=== PATIENT | male | born 1990 | race Caucasian/White ===

== ENCOUNTER 2016-06-11 08:53 | Emergency (ER) | payer OTHER ==
[2016-06-11] MEDS ORDERED: SULFAMETH-TMP DS STARTER PACK 2 TAB BTL PO STA (10:05)
--- NOTE | 2016-06-11 10:08 | ED ---
General Adult HPI - General Chief complaint: Skin/Abscess/Foreign Body Stated complaint: abcess Time Seen by Provider: 06/11/16 09:27 Source: patient, RN notes reviewed Mode of arrival: ambulatory Limitations: no limitations - History of Present Illness Initial comments: Patient 25-year-old male who presents emergency room today with an abscess to the right forearm. Patient does admit to IV drug use and is currently at rehab. States woke up this morning with increased pain swelling to this area. States he has had abscesses same area in the past. Patient denies any other complaints or symptoms. Patient denies any recent fever, chills, shortness of breath, chest pain, back pain, abdominal pain, nausea or vomiting, numbness or tingling, dysuria or hematuria, constipation or diarrhea, headaches or visual changes, or any other complaints. - Related Data Home Medications Medication Instructions Recorded Confirmed Acetaminophen [Tylenol 8 Hour] 650 mg PO Q4H PRN MDD 6tabs/24h 06/11/16 06/11/16 Calcium 1000 Magnesium 500 1 tab PO TID PRN 06/11/16 06/11/16 Ibuprofen [Motrin] 600 mg PO Q8HR PRN 06/11/16 06/11/16 Multivitamins, Thera [Multivitamin] 1 tab PO DAILY 06/11/16 06/11/16 Ondansetron HCl [Zofran] 8 mg PO Q6H PRN 06/11/16 06/11/16 busPIRone HCl [Buspar] 10 mg PO TID 06/11/16 06/11/16 Previous Rx's Medication Instructions Recorded Sulfamethox-Tmp 800-160Mg [Bactrim 1 tab PO Q12HR #28 tab 06/11/16 DS 800-160 mg] Allergies Allergy/AdvReac Type Severity Reaction Status Date / Time No Known Allergies Allergy Verified 06/11/16 09:22 Review of Systems ROS Statement: Those systems with pertinent positive or pertinent negative responses have been documented in the HPI. ROS Other: All systems not noted in ROS Statement are negative. Past Medical History Past Medical History: No Reported History History of Any Multi-Drug Resistant Organisms: None Reported Past Surgical History: Orthopedic Surgery Additional Past Surgical History / Comment(s): r lower leg/tibia Past Psychological History: Anxiety, PTSD Smoking Status: Never smoker Past Alcohol Use History: None Reported Past Drug Use History: Heroin General Exam - General Exam Comments Initial Comments: General: The patient is awake and alert, in no distress, and does not appear acutely ill. Eye: Pupils are equal, round and reactive to light, extra-ocular movements are intact. No nystagmus. There is normal conjunctiva bilaterally. No signs of icterus. Ears, nose, mouth and throat: There are moist mucous membranes and no oral lesions. Neck: The neck is supple, there is no tenderness or JVD. Cardiovascular: There is a regular rate and rhythm. No murmur, rub or gallop is appreciated. Respiratory: Lungs are clear to auscultation, respirations are non-labored, breath sounds are equal. No wheezes, stridor, rales, or rhonchi. Musculoskeletal: Normal ROM, no tenderness. Strength 5/5. Sensation intact. Pulses equal bilaterally 2+. Neurological: A&O x 3. CN II-XII intact, There are no obvious motor or sensory deficits. Coordination appears grossly intact. Speech is normal. Skin: Pale does have abscess located to the right AC joint measures approximately 2 cm across. Firm indurated on exam. Psychiatric: Cooperative, appropriate mood & affect, normal judgment. Limitations: no limitations Course Vital Signs 06/11/16 08:57 Temperature 99.3 F Pulse Rate 99 Respiratory 16 Rate Blood Pressure 118/77 O2 Sat by Pulse 98 Oximetry Procedures - Procedures Initial comment: Procedure: Incision and drainage The skin overlying the abscess was prepped with Betadine, and anesthetized with 1% lidocaine without epinephrine. A #11 scalpel was then used to incise the abscess. Some purulent material was then extracted from the lesion. Wound culture obtained. Gauze dressing placed on top, The patient tolerated the procedure well. Disposition Clinical Impression: Abscess Disposition: HOME SELF-CARE Condition: Good Instructions: Abscess (ED) Additional Instructions: Please use and biotic as prescribed. Please use warm compresses to the affected area at least 4 times daily for 15-20 minutes at a time. Please return to emergency room if the symptoms increase or worsen or for any other concerns. Prescriptions: Sulfamethox-Tmp 800-160Mg [Bactrim DS 800-160 mg] 1 tab PO Q12HR #28 tab Time of Disposition: 10:07
[2016-06-11 10:46] VITALS: BP 136/65; PULSE 87; RESP 16; TEMP 99.4
== END 2016-06-11 10:48 | disposition home or self-care (01) ==
LOC: EC 08:53
DX: L02.413 Cutaneous abscess of right upper limb (principal); F41.9 Anxiety disorder, unspecified; Z79.899 Other long term (current) drug therapy
CPT/HCPCS: 10060; 87070; 87077; 87186; 87205; 99283

== ENCOUNTER 2016-06-12 13:48 | Emergency (ER) | payer OTHER ==
[2016-06-12 14:04] VITALS: BP 126/72; PULSE 96; RESP 18; TEMP 97.8
--- NOTE | 2016-06-12 14:35 | ED ---
General Adult HPI - General Chief complaint: Skin/Abscess/Foreign Body Stated complaint: abscess right arm-revisit Time Seen by Provider: 06/12/16 14:08 Source: patient, RN notes reviewed Mode of arrival: ambulatory Limitations: no limitations - History of Present Illness Initial comments: This is a 25-year-old male presents with an abscess to the right upper extremity. Patient states this was drained yesterday morning and patient has been taking antibiotics as prescribed. Patient has been using Tylenol and Motrin but states the pain is worse today. Patient has only use warm compresses to the area once. Patient denies any increasing redness or purulent drainage from the area. Patient has a history of IV drug abuse. Patient denies any recent fever, chills, shortness breath, chest pain, abdominal pain, nausea/ vomiting/diarrhea, back pain, numbness, tingling, hematuria, headache, or visual changes, or any other complaints. - Related Data Home Medications Medication Instructions Recorded Confirmed Calcium 1000 Magnesium 500 1 tab PO TID PRN 06/11/16 06/12/16 Ibuprofen [Motrin] 600 mg PO Q8HR PRN 06/11/16 06/12/16 Multivitamins, Thera [Multivitamin] 1 tab PO DAILY 06/11/16 06/12/16 Ondansetron HCl [Zofran] 8 mg PO Q6H PRN 06/11/16 06/12/16 busPIRone HCl [Buspar] 10 mg PO TID 06/11/16 06/12/16 Acetaminophen Tab [Tylenol Tab] 650 mg PO Q4H PRN MDD 6 tabs 06/12/16 06/12/16 Previous Rx's Medication Instructions Recorded Sulfamethox-Tmp 800-160Mg [Bactrim 1 tab PO Q12HR #28 tab 06/11/16 DS 800-160 mg] Ibuprofen [Motrin] 400 mg PO Q4H 7 Days 06/12/16 Allergies Allergy/AdvReac Type Severity Reaction Status Date / Time No Known Allergies Allergy Verified 06/12/16 14:09 Review of Systems ROS Statement: Those systems with pertinent positive or pertinent negative responses have been documented in the HPI. ROS Other: All systems not noted in ROS Statement are negative. Past Medical History Past Medical History: No Reported History History of Any Multi-Drug Resistant Organisms: None Reported Past Surgical History: Orthopedic Surgery Additional Past Surgical History / Comment(s): r lower leg/tibia Past Psychological History: Anxiety, PTSD Smoking Status: Never smoker Past Alcohol Use History: None Reported Past Drug Use History: Heroin General Exam - General Exam Comments Initial Comments: General: The patient is awake and alert, in no distress, and does not appear acutely ill. Eye: Pupils are equal, round and reactive to light, extra-ocular movements are intact. No nystagmus. There is normal conjunctiva bilaterally. No signs of icterus. Ears: TMs pink and pearly with intact cone of light bilaterally. Normal external ear canals Nose: Nasal turbinates pink and moist Mouth and throat: There are moist mucous membranes and no oral lesions. Neck: The neck is supple, there is no tenderness or JVD. Cardiovascular: There is a regular rate and rhythm. No murmur, rub or gallop is appreciated. Respiratory: Lungs are clear to auscultation, respirations are non-labored, breath sounds are equal. No wheezes, stridor, rales, or rhonchi. Musculoskeletal: There is some mild tenderness to palpation over the abscess drainage site to the right antecubital fossa. There is no erythema, purulent drainage or sign of worsening infection. The area of swelling around the drainage site is approximately 2 cm in diameter. Normal ROM. Strength 5/5. Sensation intact. Radial pulses equal bilaterally 2+. Neurological: A&O x 3. CN II-XII intact, There are no obvious motor or sensory deficits. Coordination appears grossly intact. Speech is normal. Skin: Skin is warm and dry and no rashes or lesions are noted. Psychiatric: Cooperative, appropriate mood & affect, normal judgment. Limitations: no limitations Course Vital Signs 06/12/16 14:01 Temperature 97.8 F Pulse Rate 96 Respiratory 18 Rate Blood Pressure 126/72 O2 Sat by Pulse 97 Oximetry Medical Decision Making - Medical Decision Making This is a 25-year-old male presents with pain after abscess drainage yesterday morning. On physical exam patient is afebrile in the EC. There is some mild tenderness to palpation over the abscess drainage site to the right antecubital fossa. There is no erythema, purulent drainage or sign of worsening infection. The area of swelling around the drainage site is approximately 2 cm in diameter. Normal ROM. Strength 5/5. Sensation intact. Radial pulses equal bilaterally 2+. The area looks like it is healing well. I discussed that patient should continue the antibiotics and finish the entire course. I discussed continuation of ibuprofen and Tylenol as needed for the pain. Patient states he already has a prescription for ibuprofen and does not need this. I discussed warm compresses to the area frequently. Discussed return parameters. Discussed that patient should follow up with PCP in one to 2 days or return to the [facility] for any worsening symptoms or any further concerns. Patient was receptive to this plan patient was discharged home. Disposition Clinical Impression: Abscess Disposition: HOME SELF-CARE Condition: Good Instructions: Abscess (ED) Additional Instructions: Please finish entire course of antibiotics. Please continue Tylenol and/or Motrin as needed for any pain. Please use warm compresses to the area frequently throughout the day. Please watch for any worsening signs or symptoms getting increasing redness, increasing purulent drainage, redness spreading up or down the arm, fever or increased swelling. Please use medication as discussed. Please follow-up with family doctor in the next 2 days of symptoms have not improved. Please return to emergency room if the symptoms increase or worsen or for any other concerns. Prescriptions: Ibuprofen [Motrin] 400 mg PO Q4H 7 Days Referrals: None,Stated [Primary Care Provider] - 1-2 days Justin Delcid MD [REFERRING] - 1-2 days Time of Disposition: 14:41
== END 2016-06-12 14:59 | disposition home or self-care (01) ==
LOC: EC 13:48
DX: L02.413 Cutaneous abscess of right upper limb (principal); F41.9 Anxiety disorder, unspecified; Z79.899 Other long term (current) drug therapy
CPT/HCPCS: 99282